=== PATIENT | male | born 1950 | race Caucasian/White ===

== ENCOUNTER 2018-03-08 08:47 | Observation (INO) | payer BC, MEDICARE ==
[~2018-03-08] VITALS: Ht 160 cm; Wt 65.3 kg
[2018-03-08] VITALS (8 sets, daily range): BP systolic 139–170; BP diastolic 67–89
--- NOTE | ~2018-03-08 | H ---
[address] [address] HISTORY AND PHYSICAL Name: NETO SINGH SR Room: [address] Marissa John#: [id number] Admission: 03/08/18 Attend Phys: Matti Rahman MD, Discharge: 03/09/18 Date of : 48 Report #: [id number] THIS REPORT FOR: //name// Please refer to the History and Physical performed in the physician's office. By: 1437Medical Records Staff PRISCILLA /SIMBA
[~2018-03-08 08:47] MED LIST: ACTOS 45 MG45 M1 PO; ANTIVERT25 MG PO; ASPIR 8181 MG PO; CO Q-1010 MG PO; EFFIENT10 MG PO; GLIPIZIDE ER10 MG PO; GLUCOPHAGE1000 MG PO; HYDROCHLOROTH12.5 M1 PO; IMDUR 30 MG TAB30 M1 PO; KRILL OIL 3001 EACH PO; LISINOPRIL20 MG PO; LOPRESSOR50 PO; NITROSTAT0.4 M1 SL; ONGLYZA5 MG PO; VITAMIN C500 M1 PO; VITAMIN D2000 UNIT PO; ZOCOR20 MG PO; ZOCOR40 MG PO
[2018-03-08 09:30] LABS: HEMATOCRIT 33.6 % (42.0-52.0); HEMOGLOBIN 11.7 gm/dL (14.0-18.0); MCH 28.9 pg (26.0-34.0); MCHC 34.7 g/dL (28.0-37.0); MCV 83.3 fL (80.0-100.0); MPV 8.2 fl. (7.2-11.1); RBC 4.04 mil/uL (4.50-6.00); RDW-CV 14.3 % (10.5-14.5); WBC 6.1 thou/uL (4.0-11.0)
[2018-03-08 09:39] LABS: ANION GAP 9 mmol/L (7-16); APTT 27.2 Seconds (25.0-31.3); BUN 21 mg/dL (7-18); CALCIUM 9.7 mg/dL (8.5-10.1); CHLORIDE 100 mmol/L (98-107); CO2 29 mmol/L (21-32); CREATININE 1.6 mg/dL (0.6-1.3); GLUCOSE 290 mg/dL (70-99); INR 1.1; POTASSIUM 3.9 mmol/L (3.5-5.1); PROTIME 10.7 Seconds (9.20-11.50); SODIUM 138 mmol/L (136-145)
[2018-03-08 09:43] LABS: ALKALINE PHOSPHATASE 70 U/L (46-116); CHOLESTEROL 103 mg/dL (<200); HDL CHOLESTEROL 29 mg/dL (>40); LDL CHOLESTEROL 29 mg/dL (<100); SERUM ASSESSMENT Clear; SGOT 17 U/L (15-37); SGPT 20 U/L (30-65); TC:HDL 3.6 Ratio (Not establshd); TOTAL BILIRUBIN 0.4 mg/dL (<0.1-1.0); TOTAL PROTEIN 7.6 g/dL (6.4-8.2); TRIGLYCERIDE 229 mg/dL (<150); VLDL 46 mg/dL (<40)
[2018-03-08] MEDS ORDERED: LIPITOR 20 MG T20 M1 PO (09:59)
--- NOTE | 2018-03-08 16:14 | EKG ---
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1950 Requested By: Matti Rahman Order Number: [id number] Heaven MD: Matti Rahman Measurements Intervals [place] Rate: 64 P: -29 MD: 207 QRS: -32 QRSD: 99 T: 1 QT: 385 QTc: 398 Interpretive Statements Sinus rhythm RSR' in V1 or V2, right VCD or RVH Left ventricular hypertrophy Borderline T abnormalities, inferior leads Compared to ECG 03/10/2017 03:24:22 RSR' in V1 or V2 now present Electronically Signed On 03-08-2018 16:13:54 CDT by Matti Rahman [email or web address] <ELECTRONICALLY SIGNED> By: Matti Rahman MD, [facility] 03/08/18 1613 1022 1022 Matti Rahman MD, [facility] /EPI
--- NOTE | 2018-03-08 16:17 | EKG ---
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: [facility] : 1950 Requested By: Matti Rahman Order Number: [id number] Reading MD: Matti Ramhan Measurements Intervals [place] Rate: 57 P: -3 GA: 208 QRS: -27 QRSD: 100 T: -20 QT: 404 QTc: 394 Interpretive Statements Sinus rhythm Left ventricular hypertrophy Borderline T abnormalities, inferior leads Compared to ECG 03/10/2017 03:24:22 Ectopic atrial rhythm no longer present T-wave abnormality still present Electronically Signed On 03-08-2018 16:16:54 CDT by Matti Rahman [email or web address] <ELECTRONICALLY SIGNED> By: Matti Rahman MD, FACC 03/08/18 1616 1502 1502 Matti Rahman MD, [facility] /EPI
[2018-03-09] VITALS: BP 158/77
[2018-03-09 04:00] VITALS: BP 152/78
[2018-03-09 05:02] LABS: HEMATOCRIT 33.7 % (42.0-52.0); HEMOGLOBIN 11.6 gm/dL (14.0-18.0); MCH 28.9 pg (26.0-34.0); MCHC 34.5 g/dL (28.0-37.0); MCV 83.9 fL (80.0-100.0); MPV 8.2 fl. (7.2-11.1); RBC 4.02 mil/uL (4.50-6.00); RDW-CV 14.4 % (10.5-14.5); WBC 7.8 thou/uL (4.0-11.0)
[2018-03-09 05:20] LABS: ALBUMIN 3.8 g/dL (3.4-5.0); ALKALINE PHOSPHATASE 61 U/L (46-116); ANION GAP 12 mmol/L (7-16); BUN 16 mg/dL (7-18); CALCIUM 9.2 mg/dL (8.5-10.1); CHLORIDE 105 mmol/L (98-107); CO2 22 mmol/L (21-32); CREATININE 1.4 mg/dL (0.6-1.3); GLUCOSE 166 mg/dL (70-99); POTASSIUM 4.2 mmol/L (3.5-5.1); SGOT 18 U/L (15-37); SGPT 19 U/L (30-65); SODIUM 139 mmol/L (136-145); TOTAL BILIRUBIN 0.5 mg/dL (<0.1-1.0); TOTAL PROTEIN 6.9 g/dL (6.4-8.2); TROPONIN-I LEVEL <0.06 ng/mL (<0.06)
[2018-03-09 08:17] VITALS: BP 146/62
[2018-03-09 10:02] VITALS: BP 146/62
[2018-03-09 10:10] VITALS: BP 146/62
--- NOTE | 2018-03-09 17:49 | EKG ---
[place] [address] ELECTROCARDIOGRAM REPORT Name: NETO SINGH SR Room: [address]#: [id number] Admission: 03/08/18 Attend Phys: Matti Rahman MD, Discharge: 03/09/18 Date of : 48 Report #: [id number] THIS REPORT FOR: //name// [facility] Test Date: 2018-03-09 Test Time: 08:47:57 Pat Name: NETO SINGH Department: Room: 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1950 Requested By: Matti Rahman Order Number: [id number] Reading MD: Matti Rahman Measurements Intervals [place] Rate: 67 P: 60 DE: 188 QRS: -17 QRSD: 101 T: -40 QT: 401 QTc: 424 Interpretive Statements Sinus rhythm Abnormal R-wave progression, early transition Left ventricular hypertrophy Borderline T abnormalities, inferior leads Compared to ECG 03/08/2018 15:02:11 No significant changes Electronically Signed On 03-09-2018 17:49:13 CDT by Matti Rahman [email or web address] <ELECTRONICALLY SIGNED> By: Matti Rahman MD, [facility] 03/09/18 1749 0847 0847 Matti Rahman MD, [facility] /EPI
--- NOTE | 2018-03-11 13:29 | CARD ---
[address] [address] CARDIAC CATH REPORT Name: NETO SINGH SR Room: [address] Dora#: [id number] Admission: 03/08/18 Attend Phys: Matti Rahman MD, Discharge: 03/09/18 Date of : 48 Report #: [id number] THIS REPORT FOR: //name// APPROVED REPORT Study performed: 03/08/2018 12:46:59 Patient Details Patient Status: Out-Patient Room #: The patient is a 67 year-old male Event Personnel Matti Rahman Construction Crew Member, Suzanna Carranza RN Director Work, Molina Becerril (R) Monitor, Yocasta Matthews Scrub Procedures Performed NIKOLE Place w/wo Plasty Single RCA left heart catheterization selective coronary arteriography Indication Unstable angina Risk Factors Family History, Hypercholesterolemia, Hypertension Previous Procedures/Diagnoses Previous PCI Procedure Narrative The patient was brought electively to the Cardiac Catheterization Laboratory and was prepped and draped in a sterile manner. The right femoral was infiltrated with 1% Lidocaine subcutaneous anesthesia. A 6fr Ultimum Sheath sheath was inserted into the Right Femoral Artery. Coronary angiography was performed using coronary diagnostic catheters. The right coronary system was accessed and visualized with a Diagnostic 3DRC catheter. The left coronary system was accessed and visualized with a Diagnostic JL 3.5 catheter. The left ventricle was accessed and visualized with a Diagnostic Straight Pig catheter. Left ventricular/Aortic Valve gradient assessed via catheter pullback. Pre-demployment femoral angiogram was performed . Closure device was deployed with a Fr Angioseal STS 6Fr. The patient tolerated the procedure well and there were no complications [place] [address] CARDIAC CATH REPORT Name: NETO SINGH SR Room: [address]#: [id number] Admission: 03/08/18 Attend Phys: Matti Rahman MD, Discharge: 03/09/18 Date of : 48 Report #: [id number] Intraoperative Conscious Sedation Sedation start time: 13:26 Case end Time: 14:25 Fentanyl 50 mcg Versed 2 mg Fluoro Time: 15.1 minutes Dose: DAP 56118 cGycm2 1013 mGy Contrast Type and Amount: Visipaque 180 ml Coronary Angiography The patient's coronary anatomy is right dominant. Diagnostic Cath Left Main 0% narrowing LAD 40% mid LAD narrowing Circumflex 40% proximal circumflex narrowing with 50% narrowing within the proximal portion of the stented first marginal branch Right Coronary Modest size dominant vessel with 80% proximal narrowing and 50% tubular mid vessel narrowing with 30% distal right coronary narrowing Hemodynamics The aortic pressure is 165/72 mmHg with a mean of 103 mmHg. The left ventricular pressure is 147/3 mmHg with a mean of mmHg. The left ventricular end diastolic pressure is 12 mmHg. There was no gradient across the aortic valve upon pullback. PCI Technique Lesion Anticoagulation was achieved with Angiomax. Patient was preloaded with Angiomax IV 10.5 ml. Percutaneous coronary intervention was performed on the proximal right coronary artery. The lesion stenosis prior to intervention was 80% with SIDNEY 3 flow. A 6Fr AR 1 Guide Catheter was used to engage the ostium. A IG: ProwaterFlex 180CM Interventional Guidewire was used to cross the lesion. BALLOON DILATION A Balloon catheter Trek RX 2.25 X 12 was inserted and inflated up to 14.00atm for 16seconds. STENT DEPLOYMENT A drug-eluting stent Xience Alpine RX 2.5X12 was inserted and inflated up to 20.00atm for 12seconds. Additional Inflation: 12.00atm for 14seconds. Additional Inflation: 15.00atm for 17seconds. Final angiography reveals 0 % stenosis with SIDNEY 3 [place] [address] CARDIAC CATH REPORT Name: NETO SINGH SR Room: [address] [id number] Admission: 03/08/18 Attend Phys: Matti Rahman MD, Discharge: 03/09/18 Date of : 48 Report #: [id number] flow. Conclusion #1 significant coronary artery disease characterized by the following: A 40% mid LAD narrowing, B 40% proximal circumflex narrowing with 50% narrowing of the proximal portion of the first marginal branch within a stented segment, C 80% proximal right coronary narrowing with 50% tubular mid vessel narrowing and 30% distal right coronary narrowing #2 mild systemic systolic hypertension #3 successful percutaneous coronary intervention with deployment of drug-eluting stent at site of 80% proximal right coronary stenosis with 0% residual narrowing following stent deployment and SIDNEY-3 to flow the distal vessel. Recommendations Aggressive Medical Therapy Medications Administered Aspirin (any) Prasugrel Angiomax bolus and infusion <ELECTRONICALLY SIGNED> By: Matti Rahman MD, FACC 03/11/18 1329 1329 1329Matti Rahman MD, FAC /INF
--- NOTE | 2018-03-12 09:55 | D ---
[address] [address] DISCHARGE SUMMARY Name: NETO SINGH SR Room: [address] Marissa John#: [id number] Admission: 03/08/18 Attend Phys: Matti Rahman MD, Discharge: 03/09/18 Date of : 48 Report #: [id number] THIS REPORT FOR: //name// CC: [facility] DATE OF SERVICE: 03/09/2018 FINAL DISCHARGE DIAGNOSES: 1. Unstable angina. 2. Coronary artery disease. 3. Status post recent percutaneous coronary intervention to the circumflex and percutaneous coronary intervention of the right coronary artery on 03/08/2018. 4. Type 2 diabetes. 5. Hypertension. 6. Hypercholesterolemia. PROCEDURES: 03/08/2018-left heart catheterization, selective coronary arteriography, percutaneous coronary intervention with deployment of drug-eluting stent at the proximal right coronary artery site of 80% stenosis. The patient is a very pleasant 67-year-old male with complex coronary artery disease and multiple prior percutaneous coronary interventions, several weeks ago, he presented with unstable angina, underwent stenting of a bifurcation circumflex lesion involving the mid circumflex and the first marginal branch. He was also noted to have a moderately severe, 80% proximal right coronary artery stenosis, has had some intercurrent chest discomfort compatible with recurrent angina. In this context, I performed cardiac catheterization on 03/08/2018. That revealed widely patent mid circumflex stent with 30% first marginal in-stent narrowing with 80% proximal right coronary artery narrowing followed by tubular 50-60% mid right coronary artery stenosis. There was 40% proximal LAD narrowing. Given this data and the clinical scenario, I proceeded with percutaneous coronary intervention, deploying one 2.5 x 12 mm Xience Alpine drug-eluting stent in the proximal right coronary artery with 0% residual narrowing and SIDNEY 3 flow of the distal vessel. The patient did well post procedurally and there was good hemostasis at the right femoral site of catheterization. He ambulated in the hallways without difficulty. Laboratory on 03/09/2018, revealed a hemoglobin of 11.6, white blood cell count of 7800 with platelets. Sodium 139, potassium 4.2, BUN 16, creatinine 1.4 (down from 1.6 preprocedurally) with a glucose of 166 [place] [address] DISCHARGE SUMMARY Name: NETO SINGH SR Room: [address] [id number] Admission: 03/08/18 Attend Phys: Matti Rahman MD, Discharge: 03/09/18 Date of : 48 Report #: [id number] He was discharged to home in stable condition on the following medications: Ascorbic calcium or vitamin C 1000 mg daily, aspirin 81 mg daily, atorvastatin 20 mg at bedtime, vitamin D3 2000 units daily, glipizide 10 mg b.i.d., hydrochlorothiazide 12.5 mg daily, Imdur 30 mg daily, lisinopril 20 mg b.i.d., metformin 1000 mg 2-1/2 tablets daily to be resumed on 03/10/2018, metoprolol tartrate 50 mg daily, prasugrel 10 mg daily, and Coenzyme Q mg daily. I will plan to see the patient in 4 weeks in the clinic for followup. The patient discharged form room 221 on 03/09/2018. <ELECTRONICALLY SIGNED> By: Matti Rahman MD, FACC 03/12/18 0955 0959 1121John Moriah Rahman MD, FACC /nt
== END 2018-03-09 12:05 | disposition home or self-care (01) ==
LOC: M.CL 08:47 → M.TBA-CV 14:42 → M.2W 14:42
PROVIDERS: ADMIT Internal Medicine
DX: I25.110 Atherosclerotic heart disease of native coronary artery with unstable angina pectoris (principal); I10 Essential (primary) hypertension; E11.9 Type 2 diabetes mellitus without complications; E78.00 Pure hypercholesterolemia, unspecified; Z79.02 Long term (current) use of antithrombotics/antiplatelets; Z98.61 Coronary angioplasty status; Z98.890 Other specified postprocedural states

== ENCOUNTER 2018-12-04 07:32 | Observation (INO) | payer BC, MEDICARE ==
[~2018-12-04] VITALS: Ht 160 cm; Wt 68.0 kg
[2018-12-04] VITALS (17 sets, daily range): BP systolic 114–144; BP diastolic 59–72
--- NOTE | ~2018-12-04 | H ---
[address] [address] HISTORY AND PHYSICAL Name: NETO SINGH Room: [address] Marissa MJesusRJesus#: [id number] Admission: 12/04/18 Attend Phys: Matti Rahman MD, Discharge: 12/05/18 Date of : 48 Report #: [id number] THIS REPORT FOR: //name// For History and Physical please refer to the previous consultation note in the Per[facility] 7 content. By: 0644Medical Records Staff PRISCILLA /SIMBA
[~2018-12-04 07:32] MED LIST changes: +LIPITOR 20 MG T20 M1 PO
[2018-12-04 08:18] LABS: HEMATOCRIT 35.9 % (42.0-52.0); HEMOGLOBIN 12.4 gm/dL (14.0-18.0); MCH 29.7 pg (26.0-34.0); MCHC 34.5 g/dL (28.0-37.0); MCV 86.1 fL (80.0-100.0); MPV 8.1 fl. (7.2-11.1); RBC 4.17 mil/uL (4.50-6.00); RDW-CV 13.5 % (10.5-14.5); WBC 7.9 thou/uL (4.0-11.0)
[2018-12-04 08:22] LABS: ANION GAP 12 mmol/L (7-16); BUN 25 mg/dL (7-18); CALCIUM 9.6 mg/dL (8.5-10.1); CHLORIDE 101 mmol/L (98-107); CO2 26 mmol/L (21-32); CREATININE 1.9 mg/dL (0.6-1.3); GLUCOSE 202 mg/dL (70-99); POTASSIUM 3.9 mmol/L (3.5-5.1); SODIUM 139 mmol/L (136-145)
[2018-12-04 08:24] LABS: APTT 25.3 Seconds (25.0-31.3); PROTIME 10.7 Seconds (9.20-11.50)
[2018-12-04] MEDS ORDERED: IRON325 PO (08:25)
[2018-12-04] MEDS ORDERED: BRILINTA90 MG PO (08:25)
[2018-12-04 08:28] LABS: ALBUMIN 4.2 g/dL (3.4-5.0); ALKALINE PHOSPHATASE 77 U/L (46-116); CHOLESTEROL 98 mg/dL (<200); HDL CHOLESTEROL 30 mg/dL (>40); LDL CHOLESTEROL 31 mg/dL (<100); SGOT 17 U/L (15-37); SGPT 18 U/L (30-65); TC:HDL 3.3 Ratio (Not establshd); TOTAL BILIRUBIN 0.5 mg/dL (<0.1-1.0); TOTAL PROTEIN 7.9 g/dL (6.4-8.2); TRIGLYCERIDE 185 mg/dL (<150); VLDL 37 mg/dL (<40)
[2018-12-04 08:29] LABS: SERUM ASSESSMENT Clear
--- NOTE | 2018-12-04 12:28 | NUR ---
PT ADMITTED ON TELEMETRY FLOOR AT 1100 AM FROM MANAGER SOLUTION. PT IS AOX4. SR TO S LOREN ON MONITOR. PT ON BEDREST AT THIS TIME. NURSE MONITORING VS Q15 MINUTES PER POST CARDIAC CATH PROTOCOL. SON IN ROOM WITH PT. PT STATES HE LIVES WITH HIS SON AND THAT HE HAD TAKEN ALL HIS MORNING MEDICATIONS THIS AM. SO MEDICATIONS NOT GIVEN DUE TO AVOIDANCE OF DUPLICATION. IV FLUID INFUSING AT 125 PER HOUR IN [facility] AC. RIGHT GROIN AREA IS INTACT, SO SWELLING, BLEEDING OR PAIN TO TOUCH. EKG DONE AT BEDSIDE SHOWS SR. ADMISSION ASSESSEMENT AND HX PERFORMED AT BEDSIDE. WILL CONTINUE TO MONITOR PT.
--- NOTE | 2018-12-04 15:37 | EKG ---
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: : 1950 Requested By: Matti Rahman Order Number: [id number] MD: Matti Rahman Measurements Intervals [place] Rate: 61 P: 47 PA: 198 QRS: -32 QRSD: 99 T: -4 QT: 395 QTc: 398 Interpretive Statements Sinus rhythm Left ventricular hypertrophy Borderline T abnormalities, inferior leads Compared to ECG 03/09/2018 08:47:57 No significant changes Electronically Signed On 12-04-2018 15:37:32 CONCAVING MACHINE OPERATOR by Matti Rahman [email or web address] <ELECTRONICALLY SIGNED> By: Matti Rahman MD, [facility] 12/04/18 1537 2 2 Matti Rahman MD, FAC /EPI
--- NOTE | 2018-12-04 15:38 | EKG ---
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1950 Requested By: Matti Rahman Order Number: [id number] MD: Matti Rahman Measurements Intervals [place] Rate: 56 P: 46 GA: 203 QRS: -28 QRSD: 97 T: -29 QT: 406 QTc: 392 Interpretive Statements Sinus rhythm Left ventricular hypertrophy Borderline T abnormalities, inferior leads Compared to ECG 03/09/2018 08:47:57 No significant changes Electronically Signed On 12-04-2018 15:38:36 CHAR PULLER by Matti Rahman [email or web address] <ELECTRONICALLY SIGNED> By: Matti Rahman MD, [facility] 12/04/18 1538 1123 1123 Matti Rahman MD, [facility] /EPI
--- NOTE | 2018-12-04 16:27 | CARD ---
[address] [address] CARDIAC CATH REPORT Name: SAMANTHANETO SR Room: [address] Marissa John#: [id number] Admission: 12/04/18 Attend Phys: Matti Rahman MD, Discharge: Date of : 48 Report #: [id number] THIS REPORT FOR: //name// APPROVED REPORT Study performed: 12/04/2018 08:16:15 Patient Details The patient is a 68 year-old male Event Personnel Matti Rahman Direct Selling Counselor, Suzanna Carranza RN RN, Adriel Ocampo, Jaskaran Fu Scrub Procedures Performed Left heart catheterization selective coronary artery and percutaneous coronary intervention to the right coronary artery Indication Unstable angina Risk Factors Hypercholesterolemia, Hypertension Previous Procedures/Diagnoses Previous PCI, Previous CO Admission/Lab Medications/Medications given during procedure Aspirin, Platelet Aff. Inhib., Angiomax bolus and infusion Procedure Narrative The patient was brought electively to the Cardiac Catheterization Laboratory and was prepped and draped in a sterile manner. The right femoral was infiltrated with 2% Lidocaine subcutaneous anesthesia. A [place] 6 FR sheath was inserted into the . Coronary angiography was performed using coronary diagnostic catheters. The right coronary system was accessed and visualized with a Diagnostic - 3DRC catheter. The left coronary system was accessed and visualized with a Diagnostic - JL4 catheter. The left ventricle was accessed and visualized with a Diagnostic - PIG catheter. Left ventricular/Aortic Valve gradient assessed via catheter pullback. Pre-demployment femoral angiogram was performed . The patient tolerated the procedure well and there were no complications [place] [address] CARDIAC CATH REPORT Name: NETO SINGH SR Room: [address] Marissa John#: [id number] Admission: 12/04/18 Attend Phys: Matti Rahman MD, Discharge: Date of : 48 Report #: [id number] Intraoperative Conscious Sedation Sedation start time: 923 Case end Time: 1033 Fentanyl 25 mcg Versed 2 mg Fluoro Time: 17.4 minutes Dose: DAP 40630 cGycm2 1463 mGy Contrast Type and Amount: Visipaque 230 ml Coronary Angiography The patient's coronary anatomy is right dominant. Diagnostic Cath Left Main 0% narrowing LAD 30% proximal and mid LAD narrowing Circumflex 40% proximal circumflex narrowing with a widely patent mid circumflex stent and widely patent second marginal stent with 40% narrowing of the second marginal beyond the stented portion Right Coronary Moderate size dominant vessel with 90% irregular tortuous mid vessel stenosis and 40% distal narrowing Left Ventriculography Left Ventriculography was not performed. Hemodynamics The aortic pressure is 122/52 mmHg with a mean of 78 mmHg. The left ventricular pressure is 124/-1 mmHg with a mean of mmHg. The left ventricular end diastolic pressure is 6 mmHg. There was no gradient across the aortic valve upon pullback. PCI Technique Lesion Anticoagulation was achieved with Angiomax. Patient was preloaded with Angiomax IV 10.5 mg per kg. Percutaneous coronary intervention was performed on the mid right coronary artery. The lesion stenosis prior to intervention was 90% with SIDNEY 3 flow. A 6FR 3DRC SH Guide Catheter was used to engage the ostium. A IG: ProwaterFlex 180CM Interventional Guidewire was used to cross the lesion. BALLOON DILATION A Balloon catheter Mini Trek RX 2.0 X 12 was inserted and inflated up to 12.00atm for 15seconds. Additional Inflation: 12.00atm for 12seconds. STENT DEPLOYMENT A stent Tobin RX Stent 2.0X30mm was inserted and inflated up to 12.00atm for 19seconds. Additional Inflation: 18.00[place]m [place] [address] CARDIAC CATH REPORT Name: NETO SINGH SR Room: [address]#: [id number] Admission: 12/04/18 Attend Phys: Matti Rahman MD, Discharge: Date of : 48 Report #: [id number] 18seconds. POST STENT DEPLOYMENT BALLOON DILATION A Balloon catheter NC Trek RX 2.25x12 was inserted and inflated up to 12.00atm for 10seconds. Additional Inflation: 16.00atm for 9seconds. Additional Inflation: 18.00atm for 9seconds. 20 SVETLANA FOR 11 SEC 22 SVETLANA FOR 8 SEC 18 SVETLANA FOR 11 SEC Final angiography reveals 0 % stenosis with SIDNEY 3 flow. Conclusion #1 significant coronary artery disease characterized by the following: A 30% proximal and mid LAD narrowing B 40% proximal circumflex narrowing with 40% narrowing of the second marginal branch beyond the stented portion C modest sized dominant right coronary artery with 90% tortuous irregular mid vessel stenosis #2 normal left-sided hemodynamics study #3 successful percutaneous coronary intervention with deployment of drug-eluting stent at site of 90% mid right coronary stenosis with 0% residual narrowing and SIDNEY-3 flow to the distal vessel Recommendations Cardiac Risk Reduction Program Aggressive Medical Therapy Medications Administered Ticagrelor Diagnostic Cath Approved by: Matti Rahman MD Date/Time: 12/04/2018 16:26:09 <ELECTRONICALLY SIGNED> By: Matti Rahman MD, [facility] 12/04/18 1626 1626 1626Matti Rahman MD, FACC /INF
[2018-12-05] VITALS: BP 134/54
--- NOTE | 2018-12-05 03:00 | NUR ---
RECIEVED REPORT AND ASSUMED CARE AT 1900. BUSINESS PROCESS EXPERT IN PLACE AND VITAL SIGNS ARE STABLE. PT DENIED ANY PAIN AT THIS TIME. ASSESSMENT COMPLETED, DISCUSSED PLAN OF CARE AND PT UNDERSTANDS. PT UP WITH STAND BY ASSIST THE FIRST TIME THEN UP ADLIB. BED LOCKED AND CALL LIGHT WITHIN REACH. FALL PRECAUTIONS IN PLACE. HOURLY ROUNDING DONE AND ALL NEEDS MET. NURSING WILL CONTINUE TO MONITOR.
[2018-12-05 04:00] VITALS: BP 119/50
[2018-12-05 05:21] LABS: HEMATOCRIT 30.1 % (42.0-52.0); HEMOGLOBIN 10.6 gm/dL (14.0-18.0); MCH 29.9 pg (26.0-34.0); MCHC 35.4 g/dL (28.0-37.0); MCV 84.4 fL (80.0-100.0); MPV 8.2 fl. (7.2-11.1); RBC 3.56 mil/uL (4.50-6.00); RDW-CV 13.3 % (10.5-14.5); WBC 6.9 thou/uL (4.0-11.0)
[2018-12-05 05:44] LABS: ALBUMIN 3.2 g/dL (3.4-5.0); CALCIUM 8.7 mg/dL (8.5-10.1); CREATININE 1.8 mg/dL (0.6-1.3); POTASSIUM 4.1 mmol/L (3.5-5.1); TOTAL BILIRUBIN 0.6 mg/dL (<0.1-1.0); TOTAL PROTEIN 5.9 g/dL (6.4-8.2); TROPONIN-I LEVEL 0.15 ng/mL (<0.06)
[2018-12-05 08:00] VITALS: BP 138/61
--- NOTE | 2018-12-05 08:03 | NUR ---
ASSUMED PT. CARE AND RECEIVED REPORT AT 0730. PT A/OX4,VSS, MONITOR ON TRACING SR. PT. DENIES CURRENT PAIN/SOB. FULL ASSESSMENT COMPLETED, REFER TO CHARTING. RIGHT GROIN DRESSING C/D/I WITH 2+ PULSES NOTED. NO HEMATOMA OR BLEEDING PRESENT. BRANDT SHERIFF CASE INTO SEE PT. THIS MORNING. SAMPLES OF [place] GIVEN FOR DC. CALL LIGHT IN REACH, WILL CONTINUE WITH PLAN OF CARE.
[2018-12-05 12:39] VITALS: BP 133/64
--- NOTE | 2018-12-05 12:43 | NUR ---
DC ORDERS RECEIVED. IV AND MONITOR REMOVED. PT. GIVEN DC INSTRUCTIONS, SCRIPTS, AND CARENOTES. PT. SON AT BEDSIDE FOR DISCHARGE.
--- NOTE | 2018-12-05 13:16 | NUR ---
PT. LEFT WITH SON TO RETURN HOME IN PERSONAL VEHICLE, ALL BELONGINGS ACCOUNTED FOR.
--- NOTE | 2018-12-05 16:25 | EKG ---
[place] [address] ELECTROCARDIOGRAM REPORT Name: NETO SINGH Room: [address]#: [id number] Admission: 12/04/18 Attend Phys: Matti Rahman MD, Discharge: 12/05/18 Date of : 48 Report #: [id number] THIS REPORT FOR: //name// [facility] Test Date: 2018-12-05 Test Time: 04:55:23 Pat Name: NETO SINGH Department: Room: 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: : 1950 Requested By: Matti Rahman Order Number: [id number] MD: Matti Rahman Measurements Intervals [place] Rate: 70 P: 47 CO: 182 QRS: -26 QRSD: 100 T: 21 QT: 386 QTc: 417 Interpretive Statements Sinus rhythm Left ventricular hypertrophy Compared to ECG 12/04/2018 11:23:13 T-wave abnormality no longer present Electronically Signed On 12-05-2018 16:25:07 METAL SPRAYER PROTECTIVE COATING by Matti Rahman [email or web address] <ELECTRONICALLY SIGNED> By: Matti Rahmna MD, [facility] 12/05/18 1625 0455 0455 Matti Rahman MD, FACC /EPI
--- NOTE | 2018-12-07 18:30 | D ---
[address] [address] DISCHARGE SUMMARY Name: NETO SINGH SR Room: [address] Marissa John#: [id number] Admission: 12/04/18 Attend Phys: Matti Rahman MD, Discharge: 12/05/18 Date of : 48 Report #: [id number] THIS REPORT FOR: //name// CC[facility] DATE OF SERVICE: 12/05/2018 FINAL DISCHARGE DIAGNOSES: 1. Unstable angina. 2. Coronary artery disease. 3. Status post percutaneous coronary intervention of the right coronary artery. 4. Hypertension. 5. Hyperlipidemia. 6. Type 2 diabetes. PROCEDURES: 12/04/2018 -- left heart catheterization, selective coronary arteriography, percutaneous coronary intervention of the right coronary artery. The patient is a very pleasant 68-year-old male with complex coronary artery disease, status post prior myocardial infarction and prior stenting. He recently underwent angioplasty of an area of stent thrombosis in the marginal branch of the circumflex. He was also noted to have concomitant right coronary disease, which was not approached in the acute setting. He has continued to experience some angina and was recatheterized on 12/04/2018. That study revealed 40% proximal circumflex narrowing with 40% narrowing of the second marginal after the previously deployed stent. There was 30% proximal mid LAD narrowing. There was 90% irregular eccentric mid right coronary stenosis. I deployed one 2.0 x 30 mm [place] drug-eluting stent in the right coronary artery, post-dilated to 2.3 mm with 0% residual narrowing and SIDNEY 3 flow of the distal vessel. The patient did well post-procedurally, and there was good hemostasis at the right femoral site of catheterization. LABORATORY DATA: On 12/05 revealed sodium 142, potassium 4.1. BUN 21, down from 25. Creatinine 1.8, down from 1.9. Glucose 114 mg percent. Hemoglobin 10.6, hematocrit 30.1, white blood cell count 6900, with 198,000 platelets. Troponin 0.15. Total cholesterol 98, triglycerides 185, HDL 30, LDL 31. The patient ambulated in the hallways without difficulty. He was discharged to home on the following medications: Vitamin C 1000 mg daily, aspirin 81 mg daily, atorvastatin 20 mg at bedtime, cholecalciferol D3 of 2000 units daily, ferrous sulfate 325 mg daily, glipizide 10 mg b.i.d., hydrochlorothiazide 12.5 mg daily, Imdur 30 mg daily, lisinopril 20 mg b.i.d. Metformin 2500 mg daily, to be resumed on 12/06/2018. Metoprolol tartrate 50 mg daily, [place] [address] DISCHARGE SUMMARY Name: NETO SINGH SR Room: [place] [address] NIALL John#: [id number] Admission: 12/04/18 Attend Phys: Matti Rahman MD, Discharge: 12/05/18 Date of : 48 Report #: [id number] Brilinta 90 mg b.i.d. and CoQ10 of 10 mg capsule 1 daily. I will plan to see the patient in followup on 12/26/2018 at 1330 hours at [facility]. Thus, the patient is discharged to home on the aforementioned medications with followup as iterated above. <ELECTRONICALLY SIGNED> By: Matti Rahman MD, [facility] 12/07/18 1830 0915 [id number] Rahman MD, [facility] /nt
== END 2018-12-05 13:17 | disposition home or self-care (01) ==
LOC: M.CL 07:32 → M.2W 10:44 → M.TBA-CV 10:44 → M.2W 11:05
PROVIDERS: ADMIT Internal Medicine
DX: I25.110 Atherosclerotic heart disease of native coronary artery with unstable angina pectoris (principal); I10 Essential (primary) hypertension; E78.5 Hyperlipidemia, unspecified; E11.9 Type 2 diabetes mellitus without complications; Z79.82 Long term (current) use of aspirin; Z79.899 Other long term (current) drug therapy

== ENCOUNTER → 2019-02-22 | Outpatient (CLI) | payer BC, MEDICARE ==
[~2019-02-22] MED LIST changes: +BRILINTA90 MG PO; +IRON325 PO
[2019-02-22 11:04] LABS: CALCIUM 9.3 mg/dL (8.5-10.1); CREATININE 2.4 mg/dL (0.6-1.3); POTASSIUM 4.5 mmol/L (3.5-5.1)
== END ==
LOC: M.LAB 10:40
PROVIDERS: Registered Nurse
DX: N28.9 Disorder of kidney and ureter, unspecified (principal)

== ENCOUNTER 2019-03-14 21:01 | Inpatient (IN) | payer MEDICARE, BC ==
[~2019-03-14] VITALS: Ht 160 cm; Wt 65.8 kg
[~2019-03-14 21:01] MED LIST changes: -IMDUR 30 MG TAB30 M1 PO; +IMDUR 60 MG TAB60 M1 PO; -LOPRESSOR50 PO; +TOPROL XL25 MG PO
[2019-03-14 21:11] VITALS: BP 145/78
[2019-03-14] MEDS ORDERED: AMLODIPINE BESY10 MG PO (21:27)
[2019-03-14] MEDS ORDERED: RANITIDINE 150150 M1 PO (21:27)
[2019-03-14 21:42] LABS: ABSOLUTE BASOPHILS 0.1 thou/uL (0.0-0.2); ABSOLUTE EOSINOPHILS 0.4 thou/uL (0.0-0.7); ABSOLUTE LYMPHOCYTES 2.1 thou/uL (0.8-5.3); ABSOLUTE MONOCYTES 0.7 thou/uL (0.0-1.2); ABSOLUTE NEUTROPHILS 3.2 thou/uL (1.6-8.1); BASOPHILS 1.2 %; EOSINOPHILS 6.1 %; HEMATOCRIT 28.1 % (42.0-52.0); LYMPHOCYTES 32.9 %; MCH 29.5 pg (26.0-34.0); MCHC 35.5 g/dL (28.0-37.0); MONOCYTES 10.9 %; MPV 7.7 fl. (7.2-11.1); NUCLEATED RBCS 0 /100WBC; PLATELET COUNT* 258 thou/uL (150-400); POLYS 48.9 %; RBC 3.38 mil/uL (4.50-6.00); RDW-CV 13.8 % (10.5-14.5); WBC 6.5 thou/uL (4.0-11.0)
[2019-03-14 22:00] LABS: ALBUMIN 3.7 g/dL (3.4-5.0); ALKALINE PHOSPHATASE 70 U/L (46-116); ANION GAP 11 mmol/L (7-16); BUN 33 mg/dL (7-18); CHLORIDE 102 mmol/L (98-107); CO2 24 mmol/L (21-32); CREATININE 2.3 mg/dL (0.6-1.3); GLUCOSE 201 mg/dL (70-99); POTASSIUM 4.2 mmol/L (3.5-5.1); SGOT < 5 U/L (15-37); SGPT 10 U/L (30-65); SODIUM 137 mmol/L (136-145); TOTAL BILIRUBIN 0.3 mg/dL (<0.1-1.0); TOTAL PROTEIN 7.3 g/dL (6.4-8.2)
[2019-03-14 23:30] VITALS: BP 131/75
[2019-03-14 23:45] VITALS: BP 146/71
[2019-03-15 04:00] VITALS: BP 119/64
[2019-03-15 05:20] LABS: HEMATOCRIT 26.3 % (42.0-52.0); HEMOGLOBIN 9.2 gm/dL (14.0-18.0); MCH 29.1 pg (26.0-34.0); MCHC 35.1 g/dL (28.0-37.0); MCV 82.8 fL (80.0-100.0); MPV 7.7 fl. (7.2-11.1); RBC 3.18 mil/uL (4.50-6.00); RDW-CV 13.9 % (10.5-14.5); WBC 5.8 thou/uL (4.0-11.0)
[2019-03-15 05:37] LABS: CALCIUM 8.9 mg/dL (8.5-10.1); CREATININE 2.1 mg/dL (0.6-1.3); MAGNESIUM 1.7 mg/dL (1.8-2.4); POTASSIUM 4.5 mmol/L (3.5-5.1)
--- NOTE | 2019-03-15 07:36 | NUR ---
RECEIED REPORT AND ASSUMED CARE AT 2345. PT TRANSPORTED FROM ED TO ROOM 222. VSS. CARDIAC MONITORING IN PLACE. PT DENIES COMPLAINTS OF PAIN. ASSESSMENT COMPLETED CHARTED. ADMISSION COMPLETED BY NURSING. PT ORIENTATED TO ROOM, CALL LIGHT , FALL POLICY. PT UP AD TIA IN ROOM. HOURLY ROUNDING COMPLETED AND ALL NEEDS MET.
[2019-03-15 08:00] VITALS: BP 123/75; BP 132/73
--- NOTE | 2019-03-15 09:45 | EKG ---
[place] [address] ELECTROCARDIOGRAM REPORT Name: HARRIS SINGH Room: [address] ADM IN M.R.#: [id number] Admission: 03/14/19 Attend Phys: Stacey Jacob MD Discharge: Date of : 48 Report #: [id number] THIS REPORT FOR: //name// [facility] ED Test Date: 2019-03-14 Test Time: 21:06:27 Pat Name: HARRIS SINGH Department: Room: [facility] Gender: M Infant Caregiver: : 1950 Requested By: Penny Azul Order Number: [id number] MD: Harris Guillermo Measurements Intervals [place] Rate: 70 P: 4 ME: 191 QRS: -25 QRSD: 100 T: 20 QT: 374 QTc: 404 Interpretive Statements Sinus rhythm Abnormal R-wave progression, early transition LVH ST depression consider ischemia versus repolarization. Baseline wander in lead(s) V5 Compared to ECG 12/05/2018 04:55:23 Early repolarization now present Electronically Signed On 03-15-2019 9:45:08 CDT by Harris Guillermo [email or web address] <ELECTRONICALLY SIGNED> By: Harris Guillermo MD, FACC 03/15/19 0945 05 05 Harris Guillermo MD, FAC /EPI
[2019-03-15 13:00] VITALS: BP 121/71
--- NOTE | 2019-03-15 13:05 | NUR ---
Pt is A&O. Resides at home with his son. Independent. No DME. No hx of HH or SNF. Pt is current at [facility] [place] cardiac rehab and plans to resume at [place]. Goal is home. Following.
--- NOTE | 2019-03-15 15:28 | NUR ---
ASSUMED PT CARE AT 0800 AOX4, SBA, O2 SAT AT 90'S RA. TRACING SR ON FRINGE KNOTTER. PT LAST BM 03/14/19, ABDOMEN DISTENDED, SOFT ROUND. PT IV ACCESS INTACT. PT COMPLAINS OF CHEST PAIN. NITRO SUBLINGUAL GIVEN. PT FOR ACCU CHECK. IV, SKIN INTACT. VSS, ASSESSMENT CHARTED. MEDS GIVEN PER JAN. HOURLY ROUNDING, CALL LIGHT WITHIN REACH. WILL CONTINUE TO MONITOR.
[2019-03-15 15:45] VITALS: BP 119/62
[2019-03-15 19:15] VITALS: BP 125/61; BP 132/71
--- NOTE | 2019-03-15 19:22 | NUR ---
PT AOX4, UP AD TAI, O2 SAT 90'S RA. PT LAST BM 03/14/19. TRACING SR ON TELE. IV, SKIN INTACT. FOR ACCU CHECK. PT NPO FOR MIDNIGHT. GIVE REPORT TO ALMAZ TIMMONS. VSS, ASSESSMENT CHARTED, MEDS GIVEN PER MAR. FOR CONTINUE OF CARE.
--- NOTE | 2019-03-15 19:36 | NUR ---
I HAVE REVIEWED AND AGREE WITH THE CHARGTING AND NOTES OF ZHOU Causey RN ON 03/15/19
[2019-03-15 23:57] VITALS: BP 122/63
[2019-03-16] VITALS (16 sets, daily range): BP systolic 103–139; BP diastolic 57–77
[2019-03-16 02:06] LABS: GLYCOHEMOGLOBIN (HGB A1C) 8.7 % (4.8-5.6)
--- NOTE | 2019-03-16 02:13 | NUR ---
INITIAL ASSESSMENT COMPLETED CHARTED. VSS. PT TRACING SR ON MONITOR. PT DENIES PAIN, CP, SOA, N/V/D. PT IS CURRENTLY NPO PENDING CARDIAC CATH THIS A.M. PT DENIES ANY FURTHER NEEDS AT THIS TIME. HOURLY ROUNDING IN PLACE FOR PT SAFETY. CLWR.
[2019-03-16 05:03] LABS: APTT 25.7 Seconds (25.0-31.3); PROTIME 10.6 Seconds (9.20-11.50)
[2019-03-16 05:04] LABS: ANION GAP 9 mmol/L (7-16); BUN 33 mg/dL (7-18); CALCIUM 8.7 mg/dL (8.5-10.1); CHLORIDE 104 mmol/L (98-107); CHOLESTEROL 105 mg/dL (<200); CO2 26 mmol/L (21-32); CREATININE 2.2 mg/dL (0.6-1.3); GLUCOSE 104 mg/dL (70-99); HDL CHOLESTEROL 29 mg/dL (>40); LDL CHOLESTEROL 50 mg/dL (<100); POTASSIUM 4.1 mmol/L (3.5-5.1); SODIUM 139 mmol/L (136-145); TC:HDL 3.6 Ratio (Not establshd); TRIGLYCERIDE 132 mg/dL (<150); VLDL 26 mg/dL (<40)
[2019-03-16 05:05] LABS: SERUM ASSESSMENT CLEAR
--- NOTE | 2019-03-16 13:48 | NUR ---
ASSUMED PT CARE REPORT RECEIVED FROM NURSE. PT IS AOX4 SR ON BLOCK GREASER .NPO STATUS FOR CARDIAC CATH TODAY. VSS. PT WENT TO CARDIAC CATH THIS AM. CAME BACK AT 1130. CONTINUOUSLY MONITORING VITAL SIGNS. ACCUCHECK MEASURED. PT HAS BEEN NPO NO NEED FOR INSULIN. POST CARDIAC CATH VS LOOK OK. SEE CHART. R SHIRA AREA HAS BEEN OOZING SINCE THEY BROUGHT PT UP FROM [facility]. DRESSING WAS CHANGED AT BEDSIDE BY FINANCIAL SERVICES AUDITOR. NURSE WALKED IN ROOM TO ASSESS SITE AGAIN. DRESSING WAS SATURATED WITH BLOOD. FINANCIAL SERVICES AUDITOR CAME BACK UP AND APPLIED NEW DRESSING. DRESSING IN THEN INTACT. WILL CONTINUE TO MONITOR. IVF INFUSING AT 100PER HOUR. PT HAS URINATED ONCE POST CATH. STILL ON BEDREST UNTILL 1630. PT ATE LUNCH . WILL CONTINUE TO MONITOR
[2019-03-16] MEDS ORDERED: ARTIFICIAL TEAR15 M1 OPHTHALMIC (13:53)
[2019-03-16] MEDS ORDERED: METFORMIN HCL500 MG PO (13:54)
--- NOTE | 2019-03-16 15:17 | NUR ---
LIDOCAINE WAS INJECTED IN R GROIN BY MULE TENDER. DRESSING NOW INTACT. PT STOPPED BLEEDING
--- NOTE | 2019-03-16 16:55 | CARD ---
[address] [address] CARDIAC CATH REPORT Name: NETO SINGH Room: [address] IN M.R.#: [id number] Admission: 03/14/19 Attend Phys: Stacey Jacob MD Discharge: Date of : 48 Report #: [id number] THIS REPORT FOR: //name// APPROVED REPORT Study performed: 03/16/2019 09:36:35 Patient Details Patient Status: In-Patient Room #: The patient is a 68 year-old male Event Personnel Iris Ng Check WeigherNickie robertson Brad ALTERNATIVE MEDICINE PRACTITIONER Monitor, Molina Becerril (Josiah Mendez John Trailer Steerer Procedures Performed Left Heart Cath w/or w/o Coronaries [id number] [facility] NIKOLE Revasc Chronic Ttl Occl Single OM C9607 CTOREVSING Hemostasis w/ Angioseal NIKOLE Place w/wo Plasty Addl BR OM 1 C9601 DESADDL Indication Unstable angina Risk Factors Hypercholesterolemia, Hypertension Previous Procedures/Diagnoses Previous PCI, Previous OR Admission/Lab Medications/Medications given during procedure Platelet Aff. Inhib., Fentanyl IV 25 mcg, Midazolam (Versed) IV 2 mg Procedure Narrative The patient was brought electively to the Cardiac Catheterization Laboratory and was prepped and draped in a sterile manner. The right femoral was infiltrated with 2% Lidocaine subcutaneous anesthesia. A [place] 6 FR sheath was inserted into the RFA. Coronary angiography was performed using coronary diagnostic catheters. The right coronary system was accessed and visualized with a JR 4 6fr catheter. The left coronary system was accessed and visualized with a JL 3.5 6fr catheter. The left ventricle was accessed and visualized with a Straight PIG catheter. Left ventricular/Aortic Valve gradient assessed via catheter pullback. Pre-demployment femoral angiogram was performed . Closure device was deployed with a Fr Angioseal STS 6[place]. [place] [address] CARDIAC CATH REPORT Name: NETO SINGH Room: [address] IN ..#: [id number] Admission: 03/14/19 Attend Phys: Stacey Jacob MD Discharge: Date of : 48 Report #: [id number] The patient tolerated the procedure well and there were no complications associated with the procedure. There was no hematoma. Intraoperative Conscious Sedation Fentanyl 25 mcg Dose: 1803 mGy Contrast Type and Amount: Visipaque 330 ml Diagnostic Cath Left Main 0% narrowing LAD 40% mid LAD stenosis Circumflex 100% chronic total occlusion of the prominent first marginal branch of the circumflex with 75% proximal circumflex narrowing Right Coronary Dominant vessel widely patent mid right coronary stent and 50% distal narrowing Left Ventriculography Left Ventriculography was not performed. Hemodynamics The aortic pressure is 140/61 mmHg with a mean of 76 mmHg. The left ventricular pressure is 125/2 mmHg with a mean of mmHg. The left ventricular end diastolic pressure is 8 mmHg. There was no gradient across the aortic valve upon pullback. PCI Technique Lesion Anticoagulation was achieved with Angiomax. Patient was preloaded with Angiomax IV 10 ml. Percutaneous coronary intervention was performed on the first obtuse marginal branch segment. The lesion stenosis prior to intervention was 100% with SIDNEY 0 flow. A 6FR XB LAD 3.0 100CM Guide Catheter was used to engage the ostium. A i-Human Patients Flex 300cm Interventional Guidewire was used to cross the lesion. BALLOON DILATION A Balloon catheter Trek RX 2.5 X 12 was inserted and inflated up to 16.00atm for 22seconds. STENT DEPLOYMENT A stent Crenshaw RX Stent 2.5X22mm was inserted and inflated up to 16.00atm for 14seconds. Final angiography reveals 0 % stenosis with SIDNEY 3 [place] [address] CARDIAC CATH REPORT Name: NETO SINGH Room: [address] IN [facility].#: [id number] Admission: 03/14/19 Attend Phys: Stacey Jacob MD Discharge: Date of : 48 Report #: [id number] COMMENTS I was able to recanalize the chronic total occlusion of the prominent first marginal branch of the circumflex utilizing a fine cross support catheter and traversing the area chronic total occlusion with a soft tip wire and subsequent small balloon, larger balloon, and drug-eluting stent PCI Technique Lesion 2 Percutaneous Coronary Intervention was performed on the proximal circumflex artery segment. The lesion stenosis prior to intervention was 75% with SIDNEY 3 flow. Stent Deployment A drug-eluting stent Tobin RX Stent 2.75X8mm was inserted and inflated up to 12.00atm for 21seconds. Final angiography reveals 10 % stenosis with SIDNEY 3 flow. Conclusion #1 significant multivessel coronary artery disease characterized by the following: A 40% mid LAD narrowing B 75% proximal circumflex stenosis with 100% chronic total occlusion of the first marginal branch with faint filling of the distal marginal via collaterals C dominant right coronary artery with a widely patent mid right coronary stent and 50% distal narrowing #2 normal left-sided hemodynamics study #3 successful recanalization of the chronic total occlusion of the first marginal branch with 0% residual narrowing and SIDNEY-3 flow to the distal vessel after deployment of a drug-eluting stent #4 successful percutaneous coronary intervention at the site of 75% proximal circumflex stenosis with 10% residual narrowing following stent deployment Recommendations Cardiac Risk Reduction Program [employer] [place] [address] CARDIAC CATH REPORT Name: NETO SINGH Room: [address] IN ..#: [id number] Admission: 03/14/19 Attend Phys: Stacey Jacob MD Discharge: Date of : 48 Report #: [id number] Medications Administered Ticagrelor Diagnostic Cath Approved by: Matti Rahman MD Date/Time: 03/16/2019 16:54:04 <ELECTRONICALLY SIGNED> By: Matti Rahman MD, [facility] 03/16/19 1654 53 165Matti Rahman MD, [facility] /INF
--- NOTE | 2019-03-16 17:54 | NUR ---
PT R GROIN NO LONGER BLEEDING. IVF INFUSING. PT HAS GOOD APPETITE. ACCUCHECK
[2019-03-17] VITALS (8 sets, daily range): BP systolic 110–160; BP diastolic 64–71
[2019-03-17 04:57] LABS: HEMATOCRIT 25.9 % (42.0-52.0); HEMOGLOBIN 9.1 gm/dL (14.0-18.0); MCH 29.3 pg (26.0-34.0); MCHC 35.2 g/dL (28.0-37.0); MCV 83.2 fL (80.0-100.0); MPV 7.8 fl. (7.2-11.1); RBC 3.11 mil/uL (4.50-6.00); WBC 7.2 thou/uL (4.0-11.0)
--- NOTE | 2019-03-17 05:09 | NUR ---
ASSUMED PT CARE AT 1930. NURSING ASSESSMENT COMPLETED AT START OF SHIFT. PT DENIES CHEST PAIN THIS SHIFT. RIGHT GROIN DRESSING CLEAN, DRY, INTACT. HOURLY ROUNDING COMPLETED. 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 CALL LIGHT WITHIN REACH. PT VOICED NO CONCERNS THIS SHIFT.
[2019-03-17 05:43] LABS: ALBUMIN 3.2 g/dL (3.4-5.0); CALCIUM 8.9 mg/dL (8.5-10.1); CREATININE 2.3 mg/dL (0.6-1.3); POTASSIUM 4.5 mmol/L (3.5-5.1); TOTAL BILIRUBIN 0.4 mg/dL (<0.1-1.0); TOTAL PROTEIN 6.6 g/dL (6.4-8.2); TROPONIN-I LEVEL 0.39 ng/mL (<0.06)
--- NOTE | 2019-03-17 12:03 | NUR ---
PT LEFT FLOOR ACCOMPANIED BY NURSING STAFFF ON WHEELCHAIR. DC INSTRUCTIONS GIVEN
--- NOTE | 2019-03-17 12:29 | EKG ---
[place] [address] ELECTROCARDIOGRAM REPORT Name: NETO SINGH Room: [address] DIS IN M.R.#: [id number] Admission: 03/14/19 Attend Phys: Stacey Jacob MD Discharge: 03/17/19 Date of : 48 Report #: [id number] THIS REPORT FOR: //name// [facility] Test Date: 2019-03-16 Test Time: 11:45:18 Pat Name: NETO SINGH Department: Room: [address] Gender: M Contracts Officer: ALYSIA : 1950 Requested By: Matti Rahman Order Number: [id number] Reading MD: Trip Lomax Measurements Intervals [place] Rate: 59 P: 19 IA: 202 QRS: -29 QRSD: 99 T: 269 QT: 411 QTc: 408 Interpretive Statements Sinus rhythm LVH with secondary repolarization abnormality Compared to ECG 03/14/2019 21:06:27 Early repolarization now present ST (T wave) deviation no longer present Possible ischemia no longer present Electronically Signed On 03-17-2019 12:29:29 CDT by Trip Lomax [email or web address] <ELECTRONICALLY SIGNED> By: Trip Lomax MD, [facility] 03/17/19 1229 1145 1145 Trip Lomax MD, FAC /EPI
--- NOTE | 2019-03-17 12:32 | EKG ---
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: ALPESH : 1950 Requested By: Matti Rahman Order Number: [id number] Reading MD: Trip Lomax Measurements Intervals [place] Rate: 72 P: -17 NC: 193 QRS: -30 QRSD: 98 T: 241 QT: 376 QTc: 412 Interpretive Statements Sinus rhythm LVH with secondary repolarization abnormality Baseline wander in lead(s) V5 Compared to ECG 03/14/2019 21:06:27 Early repolarization now present ST (T wave) deviation no longer present Possible ischemia no longer present Electronically Signed On 03-17-2019 12:32:23 CDT by Trip Lomax [email or web address] <ELECTRONICALLY SIGNED> By: Trip Lomax MD, [facility] 03/17/19 1232 0604 0604 Trip Lomax MD, FACC /EPI
== END 2019-03-17 12:04 | disposition home or self-care (01) | DRG 247 ==
LOC: M.ERS 21:01 → M.2W 22:06 → M.TBA-ER 22:06 → M.2W 22:43
PROVIDERS: Internal Medicine; Nurse Practitioner Family; Personal Emergency Response Attendant; ADMIT Internal Medicine
PROC: 027135Z Dilation of Coronary Artery, Two Arteries with Two Drug-eluting Intraluminal Devices, Percutaneous Approach (ICD-10-PCS; principal; 2019-03-16)
PROC: 4A023N7 Measurement of Cardiac Sampling and Pressure, Left Heart, Percutaneous Approach (ICD-10-PCS; principal; 2019-03-16)
PROC: B41JYZZ Fluoroscopy of Other Lower Arteries using Other Contrast (ICD-10-PCS; principal; 2019-03-16)
PROC: B211YZZ Fluoroscopy of Multiple Coronary Arteries using Other Contrast (ICD-10-PCS; principal; 2019-03-16)
DX: I25.110 Atherosclerotic heart disease of native coronary artery with unstable angina pectoris (principal); E78.5 Hyperlipidemia, unspecified; D64.9 Anemia, unspecified; I12.9 Hypertensive chronic kidney disease with stage 1 through stage 4 chronic kidney disease, or unspecified chronic kidney disease; N18.9 Chronic kidney disease, unspecified; E11.22 Type 2 diabetes mellitus with diabetic chronic kidney disease; E11.65 Type 2 diabetes mellitus with hyperglycemia; Z90.49 Acquired absence of other specified parts of digestive tract; Z95.5 Presence of coronary angioplasty implant and graft; Z88.1 Allergy status to other antibiotic agents